=== PATIENT | female | born 1955 | race Caucasian/White ===

== ENCOUNTER → 2016-08-17 | Outpatient (CLI) | payer OTHER ==
[~2016-08-17] MED LIST: INVANZ INJ1 G/VIAL IV; ULTRAM 50MG TAB50 MG PO; VITAMIN B122500 MCG SL
== END ==
LOC: COL.RAD 11:41
DX: M19.012 Primary osteoarthritis, left shoulder (principal); S43.432A Superior glenoid labrum lesion of left shoulder, initial encounter; M75.82 Other shoulder lesions, left shoulder

== ENCOUNTER 2016-10-06 09:45 | Outpatient (RCR) | payer OTHER ==
[2016-10-09] MEDS ORDERED: VITAMIN B122500 MCG SL (12:43)
[2016-10-13] MEDS ORDERED: INVANZ INJ1 G/VIAL IV (12:35)
[2016-10-13] MEDS ORDERED: ULTRAM 50MG TAB50 MG PO (12:36)
== END 2016-11-28 10:31 ==
LOC: WSPT 09:45
DX: M25.512 Pain in left shoulder (principal)
CPT/HCPCS: G0283-GP

== ENCOUNTER 2016-10-09 07:46 | Inpatient (IN) | payer OTHER ==
[~2016-10-09] VITALS: Ht 167.6 cm; Wt 94.0 kg
[2016-10-09 08:36] LABS: HEMATOCRIT 41.4 % (37.0-47.0); HEMOGLOBIN 14.2 g/dl (12.5-16.0); MEAN CELL VOLUME 100 fl (80.0-100.0); MEAN CORPUSCULAR HEMOGLOBIN 34 pg (27.0-31.0); MEAN CORPUSCULAR HGB CONC 34 g/dl (33.0-37.0); MEAN PLATELET VOLUME 9.4 fl (7.4-10.4); PLATELET COUNT 119 K/mm3 (130-400); RED BLOOD COUNT 4.16 M/mm3 (4.10-5.30); REDCELL DISTRIBUTION WIDTH-CV 13.2 % (11.5-14.5); WHITE BLOOD COUNT 9.2 K/mm3 (4.8-10.8)
[2016-10-09 08:41] LABS: ADD PATHOLOGY DIFF REVIEW NO
[2016-10-09 08:52] LABS: ADJUSTED CALCIUM 9.1 mg/dL (8.4-10.2); ALBUMIN 3.9 gm/dL (3.5-5.0); BILIRUBIN,TOTAL 2.6 mg/dL (0.0-1.0); CREATININE, serum 0.66 mg/dL (0.52-1.25); POTASSIUM 4.1 mmol/L (3.4-5.0); TOTAL PROTEIN 7.1 gm/dL (6.4-8.2)
[2016-10-09 09:01] LABS: BAND 14 % (0-10); NEUTROPHILS 70 % (42.0-75.2); PLATELET ESTIMATE DECREASED (NORMAL); TOTAL CELLS COUNTED 100
[2016-10-09 12:34] VITALS: BP 142/84; PULSE 52; TEMP 98.3
[2016-10-09] MEDS ORDERED: VITAMIN B122500 MCG SL (12:43)
[2016-10-09 14:52] LABS: PH 5 (5-8); URINE APPEARANCE Clear; URINE BACTERIA Rare /hpf; URINE BILIRUBIN Negative (NEGATIVE); URINE BLOOD 1+ (NEGATIVE); URINE COLOR Amber; URINE GLUCOSE Negative (NEGATIVE); URINE KETONE Trace (NEGATIVE); URINE RBC 0-2 /hpf; URINE UROBILINOGEN >=4.0 mg/dL (NEGATIVE)
[2016-10-09 17:37] VITALS: BP 150/71; PULSE 62; TEMP 98.5
[2016-10-09 22:07] VITALS: BP 138/73; PULSE 71; TEMP 98.5
[2016-10-10] VITALS (7 sets, daily range): BP systolic 101–134; BP diastolic 55–72; PULSE 55–78; TEMP 98.2–99.3
[2016-10-11 01:41] VITALS: BP 140/65; PULSE 52; TEMP 99.1
[2016-10-11 05:19] VITALS: BP 159/76; PULSE 54; TEMP 98.3
[2016-10-11 07:15] LABS: HEMATOCRIT 37.4 % (37.0-47.0); HEMOGLOBIN 12.8 g/dl (12.5-16.0); MEAN CELL VOLUME 98 fl (80.0-100.0); MEAN CORPUSCULAR HEMOGLOBIN 34 pg (27.0-31.0); MEAN CORPUSCULAR HGB CONC 34 g/dl (33.0-37.0); MEAN PLATELET VOLUME 10.1 fl (7.4-10.4); PLATELET COUNT 109 K/mm3 (130-400); REDCELL DISTRIBUTION WIDTH-CV 13.2 % (11.5-14.5); WHITE BLOOD COUNT 3.8 K/mm3 (4.8-10.8)
[2016-10-11 07:19] LABS: CALCIUM 8.3 mg/dL (8.4-10.2); CREATININE, serum 0.59 mg/dL (0.52-1.25); POTASSIUM 3.4 mmol/L (3.4-5.0)
[2016-10-11 08:13] LABS: BAND 26 % (0-10); BASOPHIL 1 % (0-2); MYELOCYTE 1 % (0-0); NEUTROPHILS 47 % (42.0-75.2); TOTAL CELLS COUNTED 100
[2016-10-11 08:14] LABS: PLATELET ESTIMATE DECREASED (NORMAL)
[2016-10-11 08:15] LABS: ADD PATHOLOGY DIFF REVIEW YES
[2016-10-11 08:54] LABS: PATHOLOGY DIFF REVIEW OK
[2016-10-11 10:28] VITALS: BP 132/69; PULSE 66
[2016-10-11 13:49] VITALS: BP 133/79; PULSE 60
[2016-10-11 18:20] VITALS: BP 112/63; PULSE 57; TEMP 98.8
[2016-10-11 21:20] VITALS: BP 153/78; PULSE 50; TEMP 98.8
[2016-10-12 02:07] VITALS: BP 123/63; PULSE 54; TEMP 98.3
[2016-10-12 06:09] VITALS: BP 125/52; PULSE 50; TEMP 98.1
[2016-10-12 10:39] VITALS: BP 122/56; PULSE 61; TEMP 98.2
[2016-10-12 14:25] VITALS: BP 119/56; PULSE 62; TEMP 97.8
[2016-10-12 17:29] VITALS: BP 140/77; PULSE 56; TEMP 97.9
[2016-10-12 21:58] VITALS: BP 130/91; PULSE 62; TEMP 98.5
[2016-10-13 01:20] VITALS: BP 114/59; PULSE 51; TEMP 98.5
[2016-10-13 05:57] VITALS: BP 132/76; PULSE 50; TEMP 98.2
[2016-10-13 09:44] VITALS: BP 151/95; PULSE 67
[2016-10-13] MEDS ORDERED: INVANZ INJ1 G/VIAL IV (12:35)
[2016-10-13] MEDS ORDERED: ULTRAM 50MG TAB50 MG PO (12:36)
== END 2016-10-13 13:30 | disposition home or self-care (01) | DRG 694 ==
LOC: COL.ER 07:46 → MEDICAL 09:55 → SURG 12:05
PROVIDERS: Emergency Medicine; Family Medicine
PROC: 02HV33Z Insertion of Infusion Device into Superior Vena Cava, Percutaneous Approach (ICD-10-PCS; principal; 2016-10-11)
DX: N11.1 Chronic obstructive pyelonephritis (principal); R78.81 Bacteremia; E44.0 Moderate protein-calorie malnutrition; I10 Essential (primary) hypertension; E03.9 Hypothyroidism, unspecified; E78.5 Hyperlipidemia, unspecified; B96.20 Unspecified Escherichia coli [E. coli] as the cause of diseases classified elsewhere; G44.209 Tension-type headache, unspecified, not intractable; Z68.33 Body mass index [BMI] 33.0-33.9, adult
CPT/HCPCS: 99222-AI; 99232-AI; 99233-AI; 99239; C1751; J0696; J1170; J1335; J1644; J1650; J1885; J2185; J2405; J7030; Q9967

== ENCOUNTER 2016-10-24 07:30 | Outpatient (RCR) | payer OTHER ==
[2016-10-14 08:43] VITALS: BP 129/66; PULSE 59
[2016-10-15 08:37] VITALS: BP 149/90; PULSE 66; TEMP 98
[2016-10-16 08:48] VITALS: BP 128/55; PULSE 66; TEMP 97.7
[2016-10-17 08:18] VITALS: BP 144/81; PULSE 71
[2016-10-18 08:17] VITALS: BP 130/70; PULSE 57; TEMP 98.4
[2016-10-19 07:38] VITALS: BP 130/74; PULSE 66; TEMP 98.2
[2016-10-20 07:36] VITALS: BP 129/86; PULSE 56; TEMP 97.8
[2016-10-21 07:23] VITALS: BP 118/72; PULSE 59; TEMP 98.2
[2016-10-22 07:31] VITALS: BP 110/59; PULSE 69; TEMP 98.3
[2016-10-23 07:23] VITALS: BP 139/71; PULSE 66; TEMP 97.7
[~2016-10-24] VITALS: Ht 167.6 cm; Wt 94.5 kg
[2016-10-24 07:27] VITALS: BP 137/76; PULSE 58; TEMP 98
== END 2017-01-12 ==
LOC: EUO
DX: N12 Tubulo-interstitial nephritis, not specified as acute or chronic (principal); B96.20 Unspecified Escherichia coli [E. coli] as the cause of diseases classified elsewhere; N39.0 Urinary tract infection, site not specified
CPT/HCPCS: J1335; J1644

== ENCOUNTER → 2017-03-22 | Outpatient (CLI) | payer SELFPAY ==
[2017-03-22 14:23] LABS: COLLECTION METHOD CLEAN CATCH
[2017-03-22 14:30] LABS: MUCOUS Present /lpf; PH 6 (5-8); SQUAMOUS EPITHELIAL 0-2 /hpf; URINE APPEARANCE Hazy; URINE BACTERIA Rare /hpf; URINE BILIRUBIN Negative (NEGATIVE); URINE BLOOD Negative (NEGATIVE); URINE COLOR Yellow; URINE GLUCOSE Negative (NEGATIVE); URINE KETONE Negative (NEGATIVE); URINE LEUKOCYTE ESTERASE Negative (NEGATIVE); URINE NITRATE Positive (NEGATIVE); URINE PROTEIN(semi-quant) Negative (NEGATIVE); URINE RBC 0-2 /hpf; URINE UROBILINOGEN Negative (NEGATIVE); URINE WBC 0-2 /hpf
== END ==
LOC: COL.LAB 13:46
DX: R10.9 Unspecified abdominal pain (principal)

== ENCOUNTER 2017-07-13 14:55 | Emergency (ER) | payer MEDICARE ==
[~2017-07-13] VITALS: Ht 167.6 cm; Wt 97.7 kg
[2017-07-13 14:59] VITALS: TEMP 99.2
[2017-07-13 17:51] LABS: BASO % 0.5 % (0.0-2.0); EOS # 0.2 (0.0-0.7); EOS % 1.8 % (0-4.0); GRAN # 5.4 (1.4-6.5); GRAN % 65.1 % (42.2-75.2); HEMATOCRIT 42.9 % (37.0-47.0); HEMOGLOBIN 14.1 g/dl (12.5-16.0); LYMPH # 1.9 (1.2-3.4); LYMPH % 23.1 % (20.0-51.0); MEAN CELL VOLUME 101 fl (80.0-100.0); MEAN CORPUSCULAR HEMOGLOBIN 33 pg (27.0-31.0); MEAN CORPUSCULAR HGB CONC 33 g/dl (33.0-37.0); MEAN PLATELET VOLUME 9.9 fl (7.4-10.4); MONO # 0.8 (0.1-0.6); MONO % 9.1 % (1.7-9.3); PLATELET COUNT 268 K/mm3 (130-400); RED BLOOD COUNT 4.26 M/mm3 (4.10-5.30); REDCELL DISTRIBUTION WIDTH-CV 13.2 % (11.5-14.5)
[2017-07-13 18:01] LABS: ALBUMIN 4.1 gm/dL (3.5-5.0); BILIRUBIN,TOTAL 0.7 mg/dL (0.0-1.0); CALCIUM 9.4 mg/dL (8.4-10.2); CREATININE, serum 0.69 mg/dL (0.52-1.25); POTASSIUM 4.5 mmol/L (3.4-5.0); TOTAL PROTEIN 8.2 gm/dL (6.4-8.2)
[2017-07-13 18:11] LABS: COLLECTION METHOD CLEAN CATCH
[2017-07-13 18:17] LABS: MUCOUS Present /lpf; PH 5 (5-8); SQUAMOUS EPITHELIAL 0-2 /hpf; URINE APPEARANCE Hazy; URINE BACTERIA Many /hpf; URINE BILIRUBIN Negative (NEGATIVE); URINE BLOOD 1+ (NEGATIVE); URINE COLOR Yellow; URINE GLUCOSE Negative (NEGATIVE); URINE KETONE Negative (NEGATIVE); URINE LEUKOCYTE ESTERASE 2+ (NEGATIVE); URINE NITRATE Negative (NEGATIVE); URINE PROTEIN(semi-quant) Negative (NEGATIVE); URINE UROBILINOGEN Negative (NEGATIVE)
[2017-07-13] MEDS ORDERED: CIPRO 500MG TA500 MG PO (20:01)
[2017-07-13] MEDS ORDERED: PYRIDIUM 100MG100 MG PO (20:01)
[2017-07-13 20:14] VITALS: BP 168/88; PULSE 69
== END 2017-07-13 20:14 | disposition home or self-care (01) ==
LOC: COL.ER 14:55
PROVIDERS: Nurse Practitioner
DX: N39.0 Urinary tract infection, site not specified (principal); D64.9 Anemia, unspecified; Z87.440 Personal history of urinary (tract) infections; Z87.448 Personal history of other diseases of urinary system; Z98.51 Tubal ligation status; Z90.89 Acquired absence of other organs
CPT/HCPCS: J0696; J7030

== ENCOUNTER → 2017-07-23 | Outpatient (CLI) | payer MEDICARE ==
[~2017-07-23] MED LIST changes: +CIPRO 500MG TA500 MG PO; +PYRIDIUM 100MG100 MG PO
[2017-07-23 11:11] LABS: COLLECTION METHOD CATHETER
[2017-07-23 11:28] LABS: PH 5 (5-8); URINE APPEARANCE Clear; URINE BACTERIA None Seen /hpf; URINE BILIRUBIN Negative (NEGATIVE); URINE BLOOD Negative (NEGATIVE); URINE COLOR Straw; URINE GLUCOSE Negative (NEGATIVE); URINE KETONE Negative (NEGATIVE); URINE LEUKOCYTE ESTERASE Negative (NEGATIVE); URINE NITRATE Negative (NEGATIVE); URINE PROTEIN(semi-quant) Negative (NEGATIVE); URINE RBC 0-2 /hpf; URINE UROBILINOGEN Negative (NEGATIVE)
[2017-07-23 11:30] LABS: CALCIUM 8.9 mg/dL (8.4-10.2); CREATININE, serum 0.63 mg/dL (0.52-1.25)
== END ==
LOC: COL.RAD 09:26
DX: R10.2 Pelvic and perineal pain (principal); R32 Unspecified urinary incontinence; Z98.84 Bariatric surgery status
CPT/HCPCS: Q9967